=== PATIENT | female | born 1990 | race Two or more races ===

== ENCOUNTER 2024-10-21 11:44 | Emergency (ER) | payer MEDICAID, OTHER ==
[~2024-10-21] VITALS: Ht 160 cm; Wt 57.4 kg
[2024-10-21 12:01] VITALS: BP 113/84; PULSE 118; RESP 20; TEMP 99.1; O2SAT 96
[2024-10-21 12:32] LABS: Urine Bacteria None Seen /hpf (None Seen)
--- NOTE | 2024-10-21 12:33 | ED.PDOC ---
CENSUS ENUMERATOR HPI Comments 34 y.o female presents to the ED for a chief complaint of vaginal bleeding that presented today. Patient reports having a positive at home test x10 days ago, went to see her CENSUS ENUMERATOR yesterday and had her HCG drawn. Patient reports no bleeding present yesterday but was advised to check in for HCG levels. Patient has a gynecological history of , 1 miscarriage x 1 year ago and 2 c-sections. No abdominal pain, fever, chills, nausea, vomiting or back pain reported. Chief Complaint: Vaginal Bleed Time Seen by MD: 12:17 Reviewed Notes: Nurses Notes, Medications, Allergies Allergies: Coded Allergies: Penicillins (Verified Allergy, Unknown, 10/21/24) Information Source: Patient Mode of Arrival: Ambulatory Timing: Hours Severity: Moderate Bleeding Quality: Bright Red Onset Of Mass/Bleeding: Spontaneous Sexual Activity: Last Consensual [place]: Unknown Control: None History of: Current Associated Signs and Symptoms: Vaginal Bleeding Past Medical History PAST MEDICAL HISTORY: Denies Surgical History: (2) [employer]A TAPPER HELPER History: No Pertinent [employer] TAPPER HELPER History 4 Para 2 AB one miscarriage LMP 09/07/24 Family History Family History: Reviewed,noncontributory to illness Social History Smoker: Non-Smoker Alcohol: Denies ETOH Use Drugs: Denies Drug Use Lives In: Home Constitutional: denies: chills, diaphoresis, fatigue, fever, malaise, sweats, weakness, others EENTM: denies: blurred vision, double vision, ear bleeding, ear discharge, ear drainage, ear pain, ear ringing, eye pain, eye redness, hearing loss, mouth pain, mouth swelling, nasal discharge, nose bleeding, nose congestion, nose pain, photophobia, tearing, throat pain, throat swelling, voice changes, others Respiratory: denies: cough, hemoptysis, orthopnea, SOB at rest, shortness of breath, SOB with excertion, stridor, wheezing, others Cardiovascular: denies: chest pain, dizzy spells, diaphoresis, Dyspnea on exertion, edema, irregular heart beat, left arm pain, lightheadedness, palpitations, PND, syncope, others Gastrointestinal: denies: abdomen distended, abdominal pain, blood streaked bowels, constipated, diarrhea, dysphagia, difficulty swallowing, hematemesis, melena, nausea, poor appetite, poor fluid intake, rectal bleeding, rectal pain, vomiting, others Genitourinary: reports: abnormal vagina bleeding, ; denies: burning, dyspareunia, dysuria, flank pain, frequency, hematuria, incontinence, pain, vagina discharge, urgency, others Neurological: denies: dizziness, fainting, headache, left sided numbness, left sided weakness, numbness, paresthesia, pre-existing deficit, right sided numbness, right sided weakness, seizure, speech problems, tingling, tremors, wea kness, others Musculoskeletal: denies: back pain, gout, joint pain, joint swelling, muscle pain, muscle stiffness, neck pain, others Integumetry: denies: bruises, change in color, change in hair/nails, dryness, l aceration, lesions, lumps, rash, wounds, others Allergic/Immunocompromised: denies: Difficulty Healing, Frequent Infections, Hives, Itching, others Hematologic/Lymphatic: denies: anemia, blood clots, easy bleeding, easy bruising, swollen glands, others Endocrine: denies: excessive hunger, excessive sweating, excessive thirst, excessive urination, flushing, intolerance to cold, intolerance to heat, unexplained weight gain, unexplained weight loss, others Psychiatric: denies: anxiety, bipolar disorder, depression, hopeless, panic disorder, schizophrenia, sleepless, suicidal, others All Other Systems: Reviewed and Negative Physical Exam General Appearance: Moderate Distress HEENT: Normal ENT Inspection, Pharynx Normal, TMs Normal Neck: Full Range of Motion, Non-Tender, Normal, Normal Inspection Respiratory: Chest Non-Tender, Lungs Clear, No Accessory Muscle Use, No Respiratory Distress, Normal Breath Sounds Cardiovascular: No Edema, No JVD, No Murmur, No Gallop, Normal Peripheral Pulses, Regular Rate/Rhythm Breast Exam: Deferred Gastrointestinal: No Organomegaly, Non Tender, No Pulsatile Mass, Normal Bowel Sounds, Soft Genitalia: Deferred Pelvic: Deferred Rectal: Deferred Extremities: No calf tenderness, Normal capillary refill, Normal inspection, Normal range of motion, Non-tender, No pedal edema Musculoskeletal : Apperance: Normal Neurologic: Alert, sheet layer II-XII nml as Tested, No Motor Deficits, Normal Affect, Normal Mood, No Sensory Deficits Cerebellar Function: Normal Reflexes: Normal Skin: Dry, Normal Color, Warm Peripheral Pulses: 3+ Radial (R), 3+ Radial (L) Lymphatic: No Adenopathy Was a procedure done? Was a procedure done?: No Differential Diagnosis (C[employer]OL[employer] TAPPER HELPER) Vaginal Bleeding: - Incomplete, - Inevitable, - Threatened X-Ray, Labs, Meds, VS Vital Signs Date Time Temp Pulse Resp B/P (MAP) Pulse Ox O2 Delivery O2 Flow Rate FiO2 10/21/24 12:01 99.1 118 20 113/84 (94) 96 10/21/24 12:01 99.1 118 20 113/84 (94) 96 99.1 Lab Test 10/21/24 12:30 10/21/24 12:07 Range/Units Urine Color Colorless Yellow Urine Clarity Clear Clear Urine pH 7.0 5.0-9.0 Urine Specific Marshall 1.003 1.001-1.035 Urine Protein Negative Negative Urine Ketones Negative Negative Urine Blood 2+ H Negative /uL Urine Nitrite Negative Negative Urine Bilirubin Negative Negative Urine Urobilinogen Normal Negative mg/dL Urine Leukocyte Esterase Negative Negative /uL Urine RBC 4 0 - 4 /hpf Urine WBC <1 0 - 5 /hpf Urine Squamous Epithelial Cells Few <5 /hpf Urine Bacteria None seen None Seen /hpf Urine Glucose Normal Normal mg/dL White Blood Count 6.6 4.4-10.8 10^3/uL Red Blood Count 4.58 4.0-5.20 10^6/uL Hemoglobin 13.6 12.2-16.2 g/dL Hematocrit 40.7 36.0-46.0 % Mean Corpuscular Volume 89.0 80.0-100.0 fL Mean Corpuscular Hemoglobin 29.8 28.0-32.0 pg Mean Corpuscular Hemoglobin Concent 33.4 32.0-36.0 g/dL Red Cell Distribution Width 13.7 11.8-14.3 % Platelet Count 286 140-450 10^3/uL Mean Platelet Volume 7.9 6.9-10.8 fL Neutrophils (%) (Auto) 69.3 37.0-80.0 % Lymphocytes (%) (Auto) 21.2 10.0-50.0 % Monocytes (%) (Auto) 7.5 0.0-12.0 % Eosinophils (%) (Auto) 1.6 0.0-7.0 % Basophils (%) (Auto) 0.4 0.0-2.0 % Neutrophils # (Auto) 4.6 1.6-8.6 10 ^3/uL Lymphocytes # (Auto) 1.4 0.4-5.4 10 ^3/uL Monocytes # (Auto) 0.5 0-1.3 10 ^3/uL Eosinophils # (Auto) 0.1 0-0.8 10 ^3/uL Basophils # (Auto) 0 0-0.2 10 ^3/uL Nucleated Red Blood Cells 0.0 % Beta HCG, Quantitative 2927.6 H 1.5-4.2 mIU/mL Patient alert. Complaining of vaginal spotting. Vitals stable. Answering all questions. Reviewed her previous history pain Explained to patient. Ultrasound reviewed does not show any acute changes. Was told to get blood work ultrasound since very early in . She will need serial blood work. Was told to follow up with her OBGYN. Was told to take her vitamins. Was told to follow up with her primary care physician. Was told to come back if there is any problem. Time of 1ST Reevaluation: 12:27 Reevaluation 1ST: Unchanged Patient Education/Counseling: Diagnosis, Treatment, Prognosis Family Education/Counseling: No Family Present Additional Information The following tests were ordered, and results were reviewed by me: LAB, US Reviewed Results- LAB including HCG and UA I reviewed and agreed with the following test results read by other providers: US I discussed treatments and results with medical personnel and patient Departure 1 Departure Time of Disposition: 12:56 Impression: Primary Impression: Vaginal bleeding during Disposition: 01 HOME / SELF CARE / HOMELESS Condition: Good Discharged With: Self Critical Care Note Critical Care Time?: No Stability Stability form required: No I personally scribed for MEAGAN AGUDELO MD ([email or web address]) on 10/21/24 at 12:33. Electronically submitted by Yazmin Pacheco ([facility]). MEAGAN AGUDELO MD Oct 21, 2024 12:33
[2024-10-21 13:09] LABS: Urine Blood 2+ /uL (Negative); Urine Clarity Clear (Clear); Urine Color Colorless (Yellow); Urine Protein, UAD Negative (Negative); Urine Specific Gravity 1.003 (1.001-1.035); Urine Urobilinogen Normal (Negative); Urine WBC <1 /hpf (0 - 5)
[2024-10-21 13:33] LABS: Basophils # (auto) 0 10 ^3/uL (0-0.2); Basophils % (auto) 0.4 % (0.0-2.0); Eosinophils # (auto) 0.1 10 ^3/uL (0-0.8); Eosinophils % (auto) 1.6 % (0.0-7.0); Hematocrit 40.7 % (36.0-46.0); Hemoglobin 13.6 g/dL (12.2-16.2); Lymphocytes # (auto) 1.4 10 ^3/uL (0.4-5.4); Lymphocytes % (auto) 21.2 % (10.0-50.0); Mean Corpuscular Hemoglobin 29.8 pg (28.0-32.0); Mean Corpuscular Hgb Conc. 33.4 g/dL (32.0-36.0); Monocytes # (auto) 0.5 10 ^3/uL (0-1.3); Monocytes % (auto) 7.5 % (0.0-12.0); Neutrophils # (auto) 4.6 10 ^3/uL (1.6-8.6); Neutrophils % (auto) 69.3 % (37.0-80.0); Platelet Count (auto) 286 10^3/uL (140-450); Red Blood Cells 4.58 10^6/uL (4.0-5.20); Red Cell Distribution Width 13.7 % (11.8-14.3); White Blood Cell 6.6 10^3/uL (4.4-10.8)
--- NOTE | 2024-10-21 14:08 | DVH ---
OB ULTRASOUND CLINICAL HISTORY: bleeding TECHNIQUE: Transvaginal OB ultrasound. Comparison: None FINDINGS: The uterus measures 7.4 x 6.1 x 4.8 cm. There is a small gestational sac seen within the uterine cavi ty with mean sac diameter of 0.4 cm. There is no obvious pole seen within the sac. Gestational age is unable to be determined based on small size of the gestational sac. The right ovary measures 3.7 x 2.2 x 2.1 cm. The left ovary measures 3.0 x 1.4 x 1.3 cm. Both ovaries appear within normal limits. There is no evidence of an adnexal lesion. There is free fluid in the cul-de-sac. IMPRESSION: 1. There is a small gestational sac within the uterine cavity with mean sac diameter of 0.4 cm. There is no obvious pole seen. Gestational age is unable to be determined based on the small size of the gestational sac. Serial beta hCG measurements is recommended as well as short-term ultrasound fo llow-up study. 2. Free fluid in the cul-de-sac. HS:Y
== END 2024-10-21 14:49 | disposition home or self-care (01) ==
LOC: ER 11:44
DX: O20.9 Hemorrhage in early pregnancy, unspecified (principal); R10.2 Pelvic and perineal pain; Z3A.01 Less than 8 weeks gestation of pregnancy; Z88.0 Allergy status to penicillin; Z98.890 Other specified postprocedural states
CPT/HCPCS: 36415; 76801; 76817; 81001; 84702; 85025

== ENCOUNTER 2025-03-10 19:32 | Emergency (ER) | payer SELFPAY ==
[~2025-03-10] VITALS: Ht 160 cm; Wt 58.1 kg
--- NOTE | 2025-03-10 21:37 | ED.PDOC ---
Psychiatric HPI Comments 34-year-old female presents to ER with complaints of anxiety x one day. Patient with past medical history significant for anxiety/PTSD states that she started feeling very anxious at 6:00 p.m. prior to arrival to ER s/p thinking about her " leaving out of town". Denies any pain. Denies use of medications for current symptoms and states she is under the care of a therapist. Patient presents to ER ambulatory on arrival, with steady gait, in no distress and states her symptoms have since improved, denying any current symptoms. 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: No Pertinent DOPE HOUSE OPERATOR HELPER History Family History Family History: Unknown Social History Smoker: Non-Smoker Alcohol: Denies ETOH Use Drugs: Denies Drug Use Lives In: Home Constitutional: denies: chills, diaphoresis, fatigue, fever, malaise, sweats, weakness, others EENTM: denies: blurred vision, double vision, ear bleeding, ear discharge, ear drainage, ear pain, ear ringing, eye pain, eye redness, hearing loss, mouth pain, mouth swelling, nasal discharge, nose bleeding, nose congestion, nose pain, photophobia, tearing, throat pain, throat swelling, voice changes, others Respiratory: denies: cough, hemoptysis, orthopnea, SOB at rest, shortness of breath, SOB with excertion, stridor, wheezing, others Cardiovascular: denies: chest pain, dizzy spells, diaphoresis, Dyspnea on exertion, edema, irregular heart beat, left arm pain, lightheadedness, palpitations, PND, syncope, others Gastrointestinal: denies: abdomen distended, abdominal pain, blood streaked bowels, constipated, diarrhea, dysphagia, difficulty swallowing, hematemesis, melena, nausea, poor appetite, poor fluid intake, rectal bleeding, rectal pain, vomiting, others Genitourinary: denies: abnormal vagina bleeding, burning, dyspareunia, dysuria, flank pain, frequency, hematuria, incontinence, pain, , vagina disc harge, urgency, others Neurological: denies: dizziness, fainting, headache, left sided numbness, left sided weakness, numbness, paresthesia, pre-existing deficit, right sided numbness, right sided weakness, seizure, speech problems, tingling, tremors, weakness, others Musculoskeletal: denies: back pain, gout, joint pain, joint swelling, muscle pain, muscle stiffness, neck pain, others Integumetry: denies: bruises, change in color, change in hair/nails, dryness, laceration, lesions, lumps, rash, wounds, others Allergic/Immunocompromised: denies: Difficulty Healing, Frequent Infections, Hives, Itching, others Hematologic/Lymphatic: denies: anemia, blood clots, easy bleeding, easy bruising, swollen glands, others Endocrine: denies: excessive hunger, excessive sweating, excessive thirst, excessive urination, flushing, intolerance to cold, intolerance to heat, unexplained weight gain, unexplained weight loss, others Psychiatric: reports: others ( STATED IN HPI) Physical Exam General Appearance: No Apparent Distress HEENT: PERRL/EOMI Neck: Full Range of Motion, Non-Tender, Normal Respiratory: Chest Non-Tender, Lungs Clear, No Accessory Muscle Use, No Respiratory Distress, Normal Breath Sounds Cardiovascular: No Murmur, No Gallop, Regular Rate/Rhythm Breast Exam: Deferred Gastrointestinal: NOT DONE Genitalia: Deferred Pelvic: Deferred Rectal: Deferred Extremities: No calf tenderness, Normal capillary refill, Normal range of motion Neurologic: Alert, blueprint processor II-XII nml as Tested, No Motor Deficits, Normal Affect, Normal Mood, No Sensory Deficits Cerebellar Function: Normal Reflexes: Normal Skin: Dry, Normal Color, Warm Lymphatic: No Adenopathy Was a procedure done? Was a procedure done?: No Sedation Sedation?: No Psych Differential Dx Intoxication Differential Dx: Hallucinations, CVA, Electrolyte Imbalance Other Differentail Dx SVT, GA X-Ray, Labs, Meds, VS Vital Signs Date Time Temp Pulse Resp B/P (MAP) Pulse Ox O2 Delivery O2 Flow Rate FiO2 03/10/25 21:43 97.9 96 15 119/80 (93) 96 97.9 03/10/25 21:14 98.5 101 18 116/82 (93) 98 98.5 03/10/25 20:13 98.5 101 18 116/82 (08) 98 98.5 PATIENT HAD IMPROVEMENT IN SYMPTOMS AND WAS ASYMPTOMATIC PRIOR TO DISCHARGE ADVISED TO DRINK PLENTY OF FLUIDS ADVISED TO FOLLOW UP WITH PCP AND THERAPIST IN 1-2 DAYS PATIENT ALERT AND ORIENTED X4 PRIOR TO DISCHARGE. PATIENT VERBALIZED UNDERSTANDING AND AGREEABLE WITH CURRENT PLAN OF CARE ADVISED TO RETURN TO ER IMMEDIATELY IF SYMPTOMS WORSEN Time of 1ST Reevaluation: 21:12 Reevaluation 1ST: N/A Patient Education/Counseling: Diagnosis, Treatment, Prognosis, Need For Follow Up Family Education/Counseling: No Family Present Departure 1 Departure Time of Disposition: 21:32 Impression: Primary Impression: Anxiety Disposition: 01 HOME / SELF CARE / HOMELESS Condition: Stable Discharged With: Self Critical Care Note Critical Care Time?: No Stability Stability form required: No Heart Score Heart Score: Heart Score Response (Comments) Value History N/A 0 EKG N/A 0 Age N/A 0 Risk Factors N/A 0 Troponin N/A 0 Total 0 KESHAWN CURRAN March 10, 2025 21:37
[2025-03-10 21:43] VITALS: BP 119/80; PULSE 96; RESP 15; TEMP 97.9; O2SAT 96
== END 2025-03-10 20:13 | disposition home or self-care (01) ==
LOC: ER 19:32
DX: F41.9 Anxiety disorder, unspecified (principal)